=== PATIENT | male | born 1955 | race Caucasian/White ===

== ENCOUNTER → 2021-08-19 | Outpatient (CLI) | payer BC ==
--- NOTE | 2021-08-19 19:11 | XR ---
EXAMINATION TYPE: XR chest 2V DATE OF EXAM: 08/19/2021 COMPARISON: NONE HISTORY: [id number] TECHNIQUE: Frontal and lateral views of the chest are obtained. FINDINGS: There is no focal air space opacity, pleural effusion, or pneumothorax seen. The cardiac silhouette size is borderline enlarged. The osseous structures are intact, arthropathy present at t he acromioclavicular joints. There is thoracic spondylosis. IMPRESSION: Borderline enlarged cardiac size
[2021-08-19 19:12] LABS: Protein, Total 6.9 g/dL (6.2-8.2)
[2021-08-19 19:32] LABS: C Reactive Protein 0.9 mg/dL (0.00-0.80)
== END | disposition home or self-care (01) ==
LOC: LABWHC1 13:37
PROVIDERS: ATTEND Internal Medicine Rheumatology
DX: M35.3 Polymyalgia rheumatica (principal)
CPT/HCPCS: 36415; 71046; 82306; 82550; 83036; 84165; 85652; 86140; 86618

== ENCOUNTER → 2023-05-11 | Outpatient (CLI) | payer OTHER ==
--- NOTE | 2023-05-11 12:22 | XR ---
EXAMINATION TYPE: XR femur 2 views LT, XR knee complete 3 views LT DATE OF EXAM: 05/11/2023 COMPARISON: NONE HISTORY: 68-year-old male injury from fall 3 days ago. S80.02XA S79.912A FINDINGS: Left femur: Moderate degenerative change of the left hip with bulky marginal spurring. No acute fracture is seen. Left knee: There is a moderate knee joint effusion. Possibly fractured spur from the upper pole of the patella. On the AP view, there appears to be some vertical lucency at the upper pole of the patella. Tricompar tmental degenerative spurring with at least mild joint space narrowing in the medial compartment. IMPRESSION: Left femur: 1. Moderate left hip OA. No acute osseous abnormality seen. Left knee: 2. Moderate knee joint effusion suggesting possible occult osseous injury or internal derangement. Co nsider further MRI evaluation. 3. There may be a nondisplaced fracture through a spur at the upper pole of the patella versus a larg er incomplete vertical fracture of the upper pole of the patella. Again, MRI can better characterize. 4. [id number] tricompartmental osteoarthrosis.
== END | disposition home or self-care (01) ==
LOC: RADXRMAIN 10:50
PROVIDERS: ATTEND Emergency Medicine
DX: S80.02XA Contusion of left knee, initial encounter (principal); S79.912A Unspecified injury of left hip, initial encounter; M16.12 Unilateral primary osteoarthritis, left hip; M17.12 Unilateral primary osteoarthritis, left knee; M25.462 Effusion, left knee

== ENCOUNTER → 2023-05-16 | Outpatient (CLI) | payer BC, OTHER ==
--- NOTE | 2023-05-20 10:58 | MR ---
EXAMINATION TYPE: MR knee LT wo con DATE OF EXAM: 05/16/2023 COMPARISON: Radiograph 05/11/2023 HISTORY: 68-year-old male S80.02XD, Left knee pain, injury/fall. TECHNIQUE: Multiplanar, multisequence imaging of the left knee is performed without IV contrast. FINDINGS: The ACL and PCL are intact. Mild edema on either side of the intact MCL. Increased signal femoral attachment of the LCL proper and also increased signal along the popliteus t endon. LCL complex is otherwise intact. There is a complex tear involving the posterior horn of the medial meniscus extending to the junction with the meniscal body. There is a deep cartilage fissure measuring 4 x 4 mm along the mid central a spect of the medial femoral condyle articular surface. Marginal spurring is present. Additional mild diffuse thinning of medial compartment articular cartilage volume. There is extensive degenerative signal throughout the body and anterior horn of the lateral meniscus. Signal contacts the inner margin articular surfaces suggesting tear. There is marginal spurring in t he lateral compartment with moderate thickness focal 8 x 5 mm cartilage loss along the mid weightbear ing aspect of the lateral femoral condyle. Moderate to severe loss of articular cartilage throughout the patellofemoral compartment with margina l spurring and reactive subchondral cystic change. Extensor mechanism is intact but with some linear areas of increased signal at the insertional fibers suggesting small interstitial tears. There is a moderate knee joint effusion with mild chronic synovitis. Prominent deep soft tissue edema suggesting some extravasation of joint fluid. Small to moderate-sized Cordoba's cyst measuring 4.1 x 2.5 cm shows leaking fluid. Normal popliteal artery anatomy. Mild generalized muscle atrophy. No suspicious bone marrow replaceme nt. No acute or healing fracture seen. IMPRESSION: 1. Grade 1 MCL sprain. Grade 2 sprain femoral attachment of the LCL proper. Popliteus tendon contusio n. 2. Complex tear involving the posterior horn of the medial meniscus extending to the junction with th e meniscal body. A tiny 4 x 4 mm full-thickness cartilage fissure mid central aspect of the medial fe moral condyle articular surface. 3. Extensive degenerative signal throughout the body and anterior horn of the lateral meniscus with s ignal contacting the inner margin articular surfaces suggesting inner margin tearing here. 4. 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 5. Moderate knee joint effusion with mild chronic synovitis and a small to moderate-sized 4.1 cm leak ing Cordoba's cyst. 6. 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 7. No acute or healing fracture.
== END | disposition home or self-care (01) ==
LOC: RADMRIMAIN 11:59
PROVIDERS: ATTEND Emergency Medicine
DX: S76.912A Strain of unspecified muscles, fascia and tendons at thigh level, left thigh, initial encounter (principal); S80.02XD Contusion of left knee, subsequent encounter; M17.12 Unilateral primary osteoarthritis, left knee; M25.462 Effusion, left knee; M71.22 Synovial cyst of popliteal space [Baker], left knee